=== PATIENT | female | born 1955 | race Caucasian/White ===

== ENCOUNTER 2017-10-24 22:33 | Emergency (ER) | payer BC ==
[2017-10-24 22:52] VITALS: BP 138/73
[2017-10-24 23:02] LABS: BILIRUBIN,URINE NEGATIVE (NEGATIVE); GLUCOSE, URINE (UA) NEGATIVE (NEGATIVE); KETONES,URINE (UA) NEGATIVE (NEGATIVE); LEUKOCYTE ESTERASE, URINE SMALL (NEGATIVE); NITRITE,URINE NEGATIVE (NEGATIVE); OCCULT BLOOD,URINE LARGE (NEGATIVE); PROTEIN,URINE NEGATIVE (NEGATIVE); UROBILINOGEN,URINE 0.2 (NORMAL) E.U./dL (NORMAL)
[2017-10-24 23:13] LABS: CLARITY,URINE HAZY (CLEAR)
[2017-10-24 23:23] LABS: BACTERIA,URINE Rare /HPF (None Seen); SQUAMOUS EPITHELIAL CELL,UR RARE Squamous (<= Few)
--- NOTE | 2017-10-24 23:24 | ED Physician Documentation ---
PD HPI FEMALE - Stated complaint Stated Complaint: FEMALU - Chief complaint Chief Complaint: Abd Pain - History obtained from History obtained from: Patient - History of Present Illness Timing - onset: Other (1-2 days) Timing - details: Gradual onset, Intermittant Associated symptoms: Urinary frequency, Hematuria. No: Fever, Abdominal pain, Pelvic pain Recently seen: Not recently seen - Additional information Additional information: 1-2 days of dysuria, urgency, frequency. today, noticed hematuria. Review of Systems Constitutional: denies: Fever, Chills, Sweats GI: denies: Abdominal Pain : reports: Dysuria, Frequency, Hematuria Musculoskeletal: denies: Back pain PD PAST MEDICAL HISTORY - Past Medical History Past Medical History: Yes Other Past Medical History: UTI - Past Surgical History Past Surgical History: Yes /HAND SEWER: Hysterectomy - Present Medications Home Medications: Ambulatory Orders Medication Instructions Recorded Confirmed Nitrofurantoin [Macrobid] 100 mg PO BID #10 capsule 10/24/17 Phenazopyridine [Pyridium] 200 mg PO TID 3 Days tablet 10/24/17 - Allergies Allergies/Adverse Reactions: Allergies Allergy/AdvReac Type Severity Reaction Status Date / Time Penicillins AdvReac Hives Verified 10/24/17 22:52 - Social History Does the pt smoke?: No Smoking Status: Never smoker Does the pt drink ETOH?: No Does the pt have substance abuse?: No - Immunizations Immunizations are current?: Yes - POLST Patient has POLST: No PD ED PE NORMAL - Vitals Vital signs reviewed: Yes - General General: Alert and oriented X 3, No acute distress, Well developed/nourished - Abdomen Abdomen: Soft, Non tender - Back Back: No CVA TTP Results - Vitals Vitals: Vital Signs - 24 hr 10/24/17 22:51 Temperature 36.9 C Heart Rate 98 Respiratory 17 Rate Blood Pressure 138/73 H O2 Saturation 96 Oxygen O2 Source Room air - Labs Labs: Laboratory Tests 10/24/17 22:56 Urine Color LT RED Urine Clarity HAZY Urine pH 6.0 Ur Specific [place] <=1.005 Urine Protein NEGATIVE Urine Glucose (UA) NEGATIVE Urine Ketones NEGATIVE Urine Occult Blood LARGE H Urine Nitrite NEGATIVE Urine Bilirubin NEGATIVE Urine Urobilinogen 0.2 (NORMAL) Ur Leukocyte Esterase SMALL H Urine RBC 6-10 H Urine WBC 6-10 H Ur Squamous Epith Cells RARE Squamous Urine Bacteria Rare Ur Microscopic Review INDICATED Urine Culture Comments INDICATED PD MEDICAL DECISION MAKING - ED course Complexity details: reviewed results, considered differential, d/w patient - Sepsis Event Vital Signs: Vital Signs - 24 hr 10/24/17 22:51 Temperature 36.9 C Heart Rate 98 Respiratory 17 Rate Blood Pressure 138/73 H O2 Saturation 96 Oxygen O2 Source Room air Departure - Departure Disposition: 01 Home, Self Care Clinical Impression: Urinary tract infection Condition: Good Instructions: ED UTI Cystitis Female Prescriptions: Nitrofurantoin [Macrobid] 100 mg PO BID #10 capsule Phenazopyridine [Pyridium] 200 mg PO TID 3 Days tablet Discharge Date/Time: 10/24/17 23:44
[2017-10-24] MEDS ORDERED: PHENAZOPYRIDINE 100 MG TABLET PO STA (23:30)
[2017-10-24] MEDS ORDERED: NITROFURANTOIN MACRO 100 MG CAPSULE PO STA (23:30)
== END 2017-10-24 23:44 | disposition home or self-care (01) ==
LOC: ED 22:33
DX: N39.0 Urinary tract infection, site not specified (principal); R31.9 Hematuria, unspecified
CPT/HCPCS: 81001; 87086; 87181; 99283; A9270; 81003